=== PATIENT | male | born 1990 | race Caucasian/White ===

== ENCOUNTER → 2017-07-24 | Emergency (ER) | payer OTHER ==
[~2017-07-24] VITALS: Ht 162.6 cm; Wt 52.2 kg
[~2017-07-24] MED LIST: OSEL75CA PO; PANADOL EXTRA500 MG; ZYNCOF 20-400120 ML PO
== END ==
LOC: ER 23:08
DX: R50.9 Fever, unspecified (principal); J11.1 Influenza due to unidentified influenza virus with other respiratory manifestations

== ENCOUNTER 2019-02-09 14:45 | Emergency (ER) | payer OTHER ==
[~2019-02-09] VITALS: Ht 160 cm; Wt 59.0 kg
== END 2019-02-09 18:21 | disposition home or self-care (01) ==
LOC: ER 14:45
DX: R51 Headache (principal); M54.2 Cervicalgia

== ENCOUNTER 2021-03-09 16:08 | Emergency (ER) | payer OTHER ==
[~2021-03-09] VITALS: Ht 162.6 cm; Wt 56.7 kg
[2021-03-09] MEDS ORDERED: MAXITROL EYE DRO5 ML OP (17:01)
== END 2021-03-09 17:08 | disposition home or self-care (01) ==
LOC: ER 16:08
DX: H10.12 Acute atopic conjunctivitis, left eye (principal)